=== PATIENT | female | born 1970 | race Two or more races ===

== ENCOUNTER 2016-12-27 19:49 | Emergency (ER) | payer SELFPAY ==
[~2016-12-27] VITALS: Ht 152.4 cm; Wt 66.2 kg
--- NOTE | 2016-12-27 20:20 | NUR ---
PATIENT TO ED DT LOWER BACK PAIN, SHARP, 11/18 SINCE 1000 TODAY SP BENDING FORWARD WHILE FIXING BED. PATIENT REMAINS AMBULATORY, HOWEVER WITH DISCOMFORT. PATIENT DENIES N/V, - HEMATURIA NOR DYSURIA. VSS
[2016-12-27] MEDS ORDERED: KETOROLAC TROMETHAMINE INJ 30 MG/ML VIAL ONE (20:50)
[2016-12-27 20:53] LABS: BASOPHILS # (AUTO) 0.1 /CMM (0.0-0.2); BASOPHILS % (AUTO) 0.7 % (0.0-2.0); EOSINOPHILS # (AUTO) 0.2 /CMM (0.0-0.7); EOSINOPHILS % (AUTO) 2.3 % (0.0-6.0); HEMATOCRIT 43 % (33-45); HEMOGLOBIN 14.1 g/dL (11.5-14.8); LYMPHOCYTES # (AUTO) 3.2 /CMM (0.8-4.8); LYMPHOCYTES % (AUTO) 38.1 % (20.0-44.0); MEAN CORPUSCULAR HEMOGLOBIN 28 PG (26.0-33.0); MEAN CORPUSCULAR HGB CONC 33 g/dl (31.0-36.0); MEAN CORPUSCULAR VOLUME 84 fL (82-100); MONOCYTES # (AUTO) 0.5 /CMM (0.1-1.30); MONOCYTES % (AUTO) 6.6 % (2.0-12.0); NEUTROPHILS # (AUTO) 4.3 /CMM (1.8-8.9); NEUTROPHILS % (AUTO) 52.3 % (43.0-81.0); PLATELET COUNT (AUTO) 236 /CMM (150-450); RDW COEFFICIENT OF VARIATION 12.9 (11.5-15.0); RED BLOOD CELL COUNT(AUTO) 5.03 MIL/uL (4.0-5.2); WHITE BLOOD COUNT (AUTO) 8.3 K/uL (4.3-11.0)
--- NOTE | 2016-12-27 20:54 | NUR ---
IV ACCESS STARTED. BLOOD DRAWN FOR LABS. MEDICATED ORDERED.
[2016-12-27] MEDS ORDERED: KETOROLAC TROMETHAMINE INJ 30 MG/ML VIAL IV ONE (21:00)
[2016-12-27 21:09] LABS: CALCIUM, SERUM 8.9 mg/dL (8.5-10.1); CREATININE 0.8 mg/dL (0.6-1.3); INR 0.91 (0.87-1.13); POTASSIUM 3.3 mmol/L (3.5-5.1); PROTHROMBIN TIME 9.5 SECS (9.5-12.7)
[2016-12-27] MEDS ORDERED: IOHEXOL-350 100 ML VIAL IV ONE (21:33)
[2016-12-27] MEDS ORDERED: IV NS 0.9% 250 ML IV ONE (21:33)
[2016-12-27] MEDS ORDERED: CT SWABBABLE VALVE TRANS SET 1 EA INFUS.SET MC ONE (21:33)
[2016-12-27 21:50] LABS: APPEARANCE,URINE Clear (CLEAR); BILIRUBIN,URINE Negative (NEGATIVE); BLOOD, URINE Small Ery/uL (NEGATIVE); COLOR,URINE Yellow (YELLOW); KETONES,URINE Negative (NEGATIVE); LEUKOCYTE ESTERASE ,URINE Negative (NEGATIVE); NITRITE, URINE Negative (NEGATIVE); PROTEIN,URINE Negative (NEGATIVE); UGLUCOSE Negative (NEGATIVE); UROBILINOGEN,URINE 0.2 EU/dL (0.2)
[2016-12-27 21:54] LABS: BACTERIA,URINE None seen /HPF (None Seen); SQUAMOUS EPITHELIAL CELL,UR Few /HPF (None Seen); WBC,URINE 0-2 /HPF (0-3)
--- NOTE | 2016-12-27 23:15 | NUR ---
IV removed. Catheter intact and site benign. Pressure and 4x4 applied to site. No bleeding noted.
--- NOTE | 2016-12-27 23:36 | NUR ---
Patient discharged to home in stable condition. Written and verbal after care instructions given. Patient verbalizes understanding of instruction.
[2016-12-27 23:37] VITALS: BP 143/71
== END 2016-12-27 23:38 | disposition home or self-care (01) ==
LOC: ER 19:55
DX: M54.5 Low back pain (principal); I10 Essential (primary) hypertension; R79.1 Abnormal coagulation profile; R79.89 Other specified abnormal findings of blood chemistry; R55 Syncope and collapse
CPT/HCPCS: 36415; 71010; 71275; 74174; 80048; 81001; 82962; 85025; 85730; 93005; 96374; 99285; A4606; J1885; J7050; Q9967; Z7610; 81000-TC